=== PATIENT | male | born 1985 | race Two or more races ===

== ENCOUNTER 2025-05-23 09:25 | Emergency (ER) | payer OTHER ==
[~2025-05-23] VITALS: Ht 172.7 cm; Wt 93.1 kg
--- NOTE | 2025-05-23 09:52 | ED.PDOC ---
GI ASSESSMENT HPI Comments This is a 39 year old male presenting to the ED with chief complaint of rectal pain. Patient reports that he had started to experience rectal pain with associated constipation and straining since last week. Patient relays that he has history of hemorrhoids and believes what he has is them again. Patient states he has tried applying topical ointment with no relief. Patient denies any rectal bleeding, abdominal pain, melena, or bloody stools. Chief Complaint: Rectal Pain Time Seen by MD: 09:50 Reviewed Notes: Nurses Notes, Medications, Allergies Allergies: Coded Allergies: NO KNOWN ALLERGIES (Unverified , 05/23/25) Home Meds Active Scripts Hydrocortisone Acetate (Anusol-Hc) 25 Mg Sup, 1 SUPP VT BID, #14 SUPP Prov:DOMINGO RUTLEDGE MD 05/23/25 Information Source: Patient Mode of Arrival: Ambulatory Timing: Weeks Duration: Since onset Prehospital treatment: None Quality: Sharp Vomitus: None Stool: Hemorrhoids Severity: Moderate Recent: None Recent Hx of: None Past Medical History Past Medical History (Other): Hemorrhoids Surgical History: Denies all surgeries Family History Family History: Reviewed,noncontributory to illness, Family hx of DM Social History Smoker: Cigarettes Alcohol: Denies ETOH Use Drugs: Denies Drug Use Lives In: Home Constitutional: denies: chills, diaphoresis, fatigue, fever, malaise, sweats, weakness, others EENTM: denies: blurred vision, double vision, ear bleeding, ear discharge, ear drainage, ear pain, ear ringing, eye pain, eye redness, hearing loss, mouth pain, mouth swelling, nasal discharge, nose bleeding, nose congestion, nose pain, photophobia, tearing, throat pain, throat swelling, voice changes, others Respiratory: denies: cough, hemoptysis, orthopnea, SOB at rest, shortness of breath, SOB with excertion, stridor, wheezing, others Cardiovascular: denies: chest pain, dizzy spells, diaphoresis, Dyspnea on exertion, edema, irregular heart beat, left arm pain, lightheadedness, palpitations, PND, syncope, others Gastrointestinal: reports: rectal pain; denies: abdomen distended, abdominal pain, blood streaked bowels, constipated, diarrhea, dysphagia, difficulty swallowing, hematemesis, melena, nausea, poor appetite, poor fluid intake, rect al bleeding, vomiting, others Genitourinary: denies: burning, dysuria, flank pain, frequency, hematuria, i ncontinence, penile discharge, penile sore, pain, testicle pain, testicle swelling, urgency, others Neurological: denies: dizziness, fainting, headache, left sided numbness, left sided weakness, numbness, paresthesia, pre-existing deficit, right sided numbness, right sided weakness, seizure, speech problems, tingling, tremors, weakness, others Musculoskeletal: denies: back pain, gout, joint pain, joint swelling, muscle pain, muscle stiffness, neck pain, others Integumetry: denies: bruises, change in color, change in hair/nails, dryness, laceration, lesions, lumps, rash, wounds, others Allergic/Immunocompromised: denies: Difficulty Healing, Frequent Infections, Hives, Itching, others Hematologic/Lymphatic: denies: anemia, blood clots, easy bleeding, easy bruising, swollen glands, others Endocrine: denies: excessive hunger, excessive sweating, excessive thirst, excessive urination, flushing, intolerance to cold, intolerance to heat, unexplained weight gain, unexplained weight loss, others Psychiatric: denies: anxiety, bipolar disorder, depression, hopeless, panic disorder, schizophrenia, sleepless, suicidal, others All Other Systems: Reviewed and Negative Physical Exam General Appearance: No Apparent Distress HEENT: Normal ENT Inspection, Pharynx Normal, TMs Normal Neck: Full Range of Motion, Non-Tender, Normal, Normal Inspection Respiratory: Chest Non-Tender, Lungs Clear, No Accessory Muscle Use, No Respiratory Distress, Normal Breath Sounds Cardiovascular: No Edema, No JVD, No Murmur, No Gallop, Normal Peripheral Pulses, Regular Rate/Rhythm Breast Exam: Deferred Gastrointestinal: No Organomegaly, Non Tender, No Pulsatile Mass, Normal Bowel Sounds, Soft Genitalia: Deferred Pelvic: Deferred Rectal: Deferred Extremities: No calf tenderness, Normal capillary refill, Normal inspection, Normal range of motion, Non-tender, No pedal edema Musculoskeletal : Apperance: Normal 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 Was a procedure done?: No GI differential Dx Differential Diagnosis: Gastritis/PUD, Gastroenteritis, Ischemic Bowel, Pancreatitis, UTI, Electrolyte Imbalance, Food Poisoning X-Ray, Labs, Meds, VS Vital Signs Date Time Temp Pulse Resp B/P (MAP) Pulse Ox O2 Delivery O2 Flow Rate FiO2 05/23/25 09:27 97.3 84 16 133/85 99 97.3 This time, the patient will be discharged and will follow up with the primary care doctor The patient was given a prescription of Anusol Images Reviewed?: Images reviewed and evaluated by me Time of 1ST Reevaluation: 10:00 Reevaluation 1ST: Unchanged Patient Education/Counseling: Diagnosis, Treatment, Prognosis, Need For Follow Up Family Education/Counseling: No Family Present SEPSIS Sepsis Screen Date sepsis recognized/suspect: May 23, 2025 Time Sepsis recognized/suspect: 928 Recent Procedure: No On Antibiotic Therapy: No Respiratory Rate >20: No Heart Rate >90: No Temp<36 C (96.8 F) or >38.3 C: No SBP <90 or MAP <65 mmHG: No New Acute Mental Status Change: No Is the patient on CPAP, BIPAP,: No Vital Signs Date Time Temp Pulse Resp B/P (MAP) Pulse Ox O2 Delivery O2 Flow Rate FiO2 05/23/25 09:27 97.3 84 16 133/85 99 97.3 Departure 1 Departure Time of Disposition: 10:01 Impression: Primary Impression: Internal hemorrhoids Disposition: HOME / SELF CARE / HOMELESS Condition: Fair e-Prescriptions Hydrocortisone Acetate (Anusol-Hc) 25 Mg Sup 1 SUPP VT BID, #14 SUPP Prov: DOMINGO RUTLEDGE MD 05/23/25 Discharged With: Self Critical Care Note Critical Care Time?: No Stability Stability form required: No Heart Score Heart Score: Heart Score Response (Comments) Value History N/A 0 EKG N/A 0 Age N/A 0 Risk Factors N/A 0 Troponin N/A 0 Total 0 I personally scribed for DOMINGO RUTLEDGE MD ([email or web address]) on 05/23/25 at 09:52. Electronically submitted by Hiro Avila ([email or web address]). DOMINGO RUTLEDGE MD May 23, 2025 09:52
[2025-05-23] MEDS ORDERED: HYDR25SU21 PR (10:00)
[2025-05-23 11:44] VITALS: BP 129/74; PULSE 59; RESP 16; TEMP 98.6; O2SAT 100
== END 2025-05-23 11:47 | disposition home or self-care (01) ==
LOC: ER 09:25
DX: K64.8 Other hemorrhoids (principal); F17.210 Nicotine dependence, cigarettes, uncomplicated; Z87.19 Personal history of other diseases of the digestive system; Z79.899 Other long term (current) drug therapy